=== PATIENT | male | born 1985 | race Caucasian/White ===

== ENCOUNTER 2018-06-29 21:11 | Emergency (ER) | payer OTHER ==
[~2018-06-29] VITALS: Ht 182.9 cm; Wt 79.4 kg
[2018-06-29 21:11] VITALS: BP 119/69
--- NOTE | 2018-06-29 21:11 | NUR ---
PT BIB [facility], PREBOOK. TAKEN TO CHAIR A
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
--- NOTE | 2018-06-29 21:22 | NUR ---
Dr. Gardner evaluating patient
[2018-06-29] MEDS ORDERED: KETOROLAC 60 MG/2 ML VIAL IM ONE (21:30)
[2018-06-29 21:45] VITALS: BP 119/69
--- NOTE | 2018-06-29 21:45 | NUR ---
PATIENT BIB [facility]. PATIENT EXAMINED BY DR. NEWELL. PATIENT MEDICALLY CLEARED AND RELEASED IN CUSTODY IN STABLE CONDITION. ORIGINAL PRE-BOOK FORM GIVEN TO OFFICER #[id number].
== END 2018-06-29 21:45 ==
LOC: MED 21:11
DX: M54.5 Low back pain (principal); Z02.89 Encounter for other administrative examinations; V89.2XXA Person injured in unspecified motor-vehicle accident, traffic, initial encounter; Y93.89 Activity, other specified; Y92.89 Other specified places as the place of occurrence of the external cause; Y99.8 Other external cause status
CPT/HCPCS: 96372; 99283; J1885